=== PATIENT | male | born 1980 | race Caucasian/White ===

== ENCOUNTER 2017-08-27 11:30 | Emergency (ER) | payer OTHER ==
[~2017-08-27] VITALS: Ht 182.9 cm; Wt 119.7 kg
[2017-08-27] MEDS ORDERED: ASPIRIN 81 MG CHEW (CHILDREN'S ASA) PO ONE (12:15)
[2017-08-27 12:18] LABS: BASOPHILS # (AUTO) 0.1 10^3/uL (0.0-0.1); BASOPHILS % (AUTO) 1 % (0-10); EOSINOPHILS # (AUTO) 0.3 10^3/uL (0.0-0.3); EOSINOPHILS % (AUTO) 3 % (0-10); HEMATOCRIT 43 % (40-54); LYMPHOCYTES # (AUTO) 2.5 X 10^3 (1.0-4.0); LYMPHOCYTES % (AUTO) 28 % (12-44); MEAN CORPUSCULAR HEMOGLOBIN 30 PG (25-34); MEAN CORPUSCULAR HGB CONC 35 G/DL (32-36); MEAN CORPUSCULAR VOLUME 86 FL (80-99); MEAN PLATELET VOLUME 9.7 FL (7.4-10.4); MONOCYTES # (AUTO) 0.5 X 10^3 (0.0-1.0); MONOCYTES % (AUTO) 6 % (0-12); NEUTROPHILS # (AUTO) 5.5 X 10^3 (1.8-7.8); NEUTROPHILS % (AUTO) 63 % (42-75); PLATELET COUNT 282 10^3/uL (130-400); RED BLOOD COUNT 4.94 10^6/uL (4.35-5.85); RED CELL DISTRIBUTION WIDTH 13.2 % (10.0-14.5); WHITE BLOOD COUNT 8.8 10^3/uL (4.3-11.0)
[2017-08-27 12:24] LABS: PROTHROMBIN TIME PATIENT 13.4 SEC (12.2-14.7)
[2017-08-27 12:30] LABS: ALANINE AMINOTRANSFERASE 75 U/L (0-55); ALBUMIN 4.5 GM/DL (3.2-4.5); ALKALINE PHOSPHATASE 60 U/L (40-136); BILIRUBIN,TOTAL 0.7 MG/DL (0.1-1.0); BUN/CREATININE RATIO 9; CALCIUM 9.3 MG/DL (8.5-10.1); CARBON DIOXIDE 28 MMOL/L (21-32); CHLORIDE 104 MMOL/L (98-107); GFR ESTIMATED > 60; GLUCOSE 115 MG/DL (70-105); MAGNESIUM 2.4 MG/DL (1.8-2.4); SODIUM 139 MMOL/L (135-145); TOTAL PROTEIN 7.1 GM/DL (6.4-8.2)
[2017-08-27 12:37] LABS: MYOGLOBIN SERUM 91.8 NG/ML (10.0-92.0)
--- NOTE | 2017-08-27 12:43 | Diagnostic Imaging Report ---
PATIENT HISTORY: Severe right arm pain. TECHNIQUE: Single frontal view of the chest. COMPARISON: None. FINDINGS: Lung volumes are normal. No focal consolidation is seen. There is no pleural effusion or pneumothorax. There is mild cardiomegaly with central vascular congestion. IMPRESSION: Mild cardiomegaly with central vascular congestion. Dictated by: Dictated on workstation # [id number]
--- NOTE | 2017-08-27 13:04 | ED Upper Extremity ---
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 He advises he felt it was just sorness however the pain has become progressively worse. He advises today pain is throughout his shoulder arm and finger tips. He advises he became diaphoretic and felt as if he was going to pass out secondary to the pain. Nursing Sepsis Screen: No Definite Risk Source: patient Exam Limitations: no limitations History of Present Illness Date Seen by Provider: August 27, 2017 Time Seen by Provider: 12:30 Initial Comments Here with report of right shoulder and to a limited extent right chest pain as well as nausea, sweating and feeling like he was given a pass out. This has been going on intermittently for the last 3 days. Started when he was working with takes to do vaccinations and he was having to hold them. That day he was having bilateral bicep pain. It did go away and he has had some intermittent pain especially on the right including some right anterior chest wall pain since. Today he was carrying some wood and had the right shoulder area pain that radiated down the right arm. This got severe and he became dizzy and weak as well as shaky and felt like he was given a pass out. He started sweating profusely and nearly vomited. He did take 600 mg ibuprofen about 45 minutes prior to arrival and that may be helping currently some. Onset: other Severity: severe Pain/Injury Location: right shoulder Method of Injury: unknown Modifying Factors: Worse With Immobilization; Improves With Movement Allergies and Home Medications Allergies Coded Allergies: No Known Drug Allergies (Unverified , 08/27/17) Patient Home Medication List Home Medication List Reviewed: Yes Constitutional: see HPI, diaphoresis; No fever EENTM: no symptoms reported Respiratory: No cough, No short of breath Cardiovascular: chest pain; No edema; other (near syncope) Gastrointestinal: No abdominal pain; nausea; No vomiting Genitourinary: no symptoms reported Musculoskeletal: see HPI; No back pain; joint pain, muscle pain; No neck pain Skin: no symptoms reported Psychiatric/Neurological: See HPI All Other Systems Reviewed Negative Unless Noted: Yes Past Diheidk-Hnwryd-Qlqwhw Hx Past Med/Social Hx: Reviewed Nursing Past Med/Soc Hx Patient Social History Alcohol Use: Denies Use Recreational Drug Use: No Smoking Status: Never a Smoker Recent Foreign Travel: No Contact w/Someone Who Travel: No Recent Infectious Disease Expo: No Physical Abuse: No Sexual Abuse: No Past Medical History Surgeries: Yes Orthopedic Respiratory: No Cardiac: No Neurological: No Genitourinary: No Gastrointestinal: No Musculoskeletal: No Endocrine: No HEENT: No Cancer: No Did You Recieve Any Treatments: No Psychosocial: No Nursing Suicide Risk Score: 0 Family Medical History Reviewed Nursing Family Hx No Pertinent Family Hx Physical Exam Vital Signs Vital Signs - First Documented 08/27/17 12:10 Temp 97.7 Pulse 54 Resp 14 B/P (MAP) 110/66 (81) Pulse Ox 98 O2 Delivery Room Air Capillary Refill : Less Than 3 Seconds General Appearance: WD/WN, no apparent distress HEENT: PERRL/EOMI, pharynx normal Neck: non-tender, full range of motion, supple, normal inspection Cardiovascular: regular rate, rhythm, no murmur Respiratory: lungs clear, normal breath sounds Gastrointestinal: non tender, soft Back: normal inspection, no CVA tenderness, no vertebral tenderness Shoulder: normal ROM, pain (anterior superior shoulder region with some tenderness to palpation. Retains full range of motion.) Elbow/Forearm: normal inspection, non-tender, no evidence of injury, normal ROM , Right, Left Wrist: Yes normal inspection Hand: normal inspection Neurologic/Tendon: normal sensation, normal motor functions, normal tendon functions Neurologic/Psychiatric: alert, oriented x 3 Skin: normal color, warm/dry Comments Retains bicep movement in the right arm without findings concerning for rupture. Distal pulses intact and equal bilateral upper extremities. Progress/Results/Core Measures Results/Orders Lab Results Laboratory Tests Test 08/27/17 11:50 Range/Units White Blood Count 8.8 4.3-11.0 10^3/uL Red Blood Count 4.94 4.35-5.85 10^6/uL Hemoglobin 15.0 13.3-17.7 G/DL Hematocrit 43 40-54 % Mean Corpuscular Volume 86 80-99 FL Mean Corpuscular Hemoglobin 30 25-34 PG Mean Corpuscular Hemoglobin Concent 35 32-36 G/DL Red Cell Distribution Width 13.2 10.0-14.5 % Platelet Count 282 130-400 10^3/uL Mean Platelet Volume 9.7 7.4-10.4 FL Neutrophils (%) (Auto) 63 42-75 % Lymphocytes (%) (Auto) 28 12-44 % Monocytes (%) (Auto) 6 0-12 % Eosinophils (%) (Auto) 3 0-10 % Basophils (%) (Auto) 1 0-10 % Neutrophils # (Auto) 5.5 1.8-7.8 X 10^3 Lymphocytes # (Auto) 2.5 1.0-4.0 X 10^3 Monocytes # (Auto) 0.5 0.0-1.0 X 10^3 Eosinophils # (Auto) 0.3 0.0-0.3 10^3/uL Basophils # (Auto) 0.1 0.0-0.1 10^3/uL Prothrombin Time 13.4 12.2-14.7 SEC INR Comment 1.0 0.8-1.4 Activated Partial Thromboplast Time 27 24-35 SEC D-Dimer < 0.27 0.00-0.49 UG/ML Sodium Level 139 135-145 MMOL/L Potassium Level 4.0 3.6-5.0 MMOL/L Chloride Level 104 98-107 MMOL/L Carbon Dioxide Level 28 21-32 MMOL/L Anion Gap 7 5-14 MMOL/L Blood Urea Nitrogen 12 7-18 MG/DL Creatinine 1.30 0.60-1.30 MG/DL Estimat Glomerular Filtration Rate > 60 BUN/Creatinine Ratio 9 Glucose Level 115 H 70-105 MG/DL Calcium Level 9.3 8.5-10.1 MG/DL Magnesium Level 2.4 1.8-2.4 MG/DL Total Bilirubin 0.7 0.1-1.0 MG/DL Aspartate Amino Transf (AST/SGOT) 41 H 5-34 U/L Alanine Aminotransferase (ALT/SGPT) 75 H 0-55 U/L Alkaline Phosphatase 60 40-136 U/L Myoglobin 91.8 10.0-92.0 NG/ML Troponin I < 0.30 <0.30 NG/ML Total Protein 7.1 6.4-8.2 GM/DL Albumin 4.5 3.2-4.5 GM/DL My Orders Orders - RAFAT BOOTH MD Cbc With Automated Diff (08/27/17 12:12) Magnesium (08/27/17 12:12) Chest 1 View, Ap/Pa Only (08/27/17 12:12) Ekg Tracing (08/27/17 12:12) Cardiac Profile 1 (08/27/17 12:12) Comprehensive Metabolic Panel (08/27/17 12:12) Myoglobin Serum (08/27/17 12:12) Protime With Inr (08/27/17 12:12) Partial Thromboplastin Time (08/27/17 12:12) Monitor-Rhythm Ecg Trace Only (08/27/17 12:12) Lipid Panel (08/28/17 06:00) Aspirin Chewable Tablet (Baby Aspirin Ch (08/27/17 12:15) Saline Lock/Iv-Start (08/27/17 12:12) Fibrin Degradation Products (08/27/17 12:12) Medications Given in ED Current Medications Medications Dose Ordered Sig/Jenise Route Start Time Stop Time Status Last Admin Dose Admin Aspirin 324 mg ONCE ONCE PO 08/27/17 12:15 08/27/17 12:16 DC 08/27/17 12:28 324 MG Vital Signs/I&O 08/27/17 08/27/17 12:10 12:28 Temp 97.7 97.7 Pulse 54 Resp 14 B/P (MAP) 110/66 (81) Pulse Ox 98 O2 Delivery Room Air Blood Pressure Mean: 81 Progress Progress Note : Progress Note Seen and evaluated. Challenging history given the history of chest pain with this as well as diaphoresis and near syncope. We will evaluate for cardiac cause the EKG and labs as well as chest x-ray. If this rules out, consideration for musculoskeletal injury of the shoulder or biceps. Aspirin 324 mg by mouth given. Monitor patient. 1330: I did talk with the patient more at length regarding his findings on EKG and chest x-ray including LVH and mild cardiomegaly. Patient is normotensive here and equal bilateral arms. He states that he normally has normal blood pressure. On further conversation, patient does admit to drinking monster caffeinated drinks frequently and previously has used workout supplements while working out which may be the cause of her cardiomegaly and LVH. We did discuss stopping those and also my concerns related to very early cardiac changes noted. He reports that he will stop those. He does not have a current physician and have asked about Dr. Mazin Ratliff. I will send information to him and they will call him for follow-up. Also given name of cardiology for follow-up this may be done through primary care office as well. Initial ECG Impression Date: August 27, 2017 Initial ECG Impression Time: 11:39 Initial ECG Rate: 58 Initial ECG Rhythm: Normal Sinus Initial ECG Comparisson: No Previous ECG Available Comment Sinus rhythm with findings of left ventricular hypertrophy. No evidence of ST elevation LA. No previous available for comparison. Interpreted by me. Diagnostic Imaging Diagonstic Imaging: Xray Plain Films/CT/US/NM/MRI: chest Comments NAME: BRENNAN JACKSON [facility] REC#: [id number] PT STATUS: REG ER : 1980 PHYSICIAN: RAFAT BOOTH MD ADMIT DATE: 08/27/17/ER Signed Date of Exam: 08/27/17 CHEST 1 VIEW, AP/PA ONLY PATIENT HISTORY: Severe right arm pain. TECHNIQUE: Single frontal view of the chest. COMPARISON: None. FINDINGS: Lung volumes are normal. No focal consolidation is seen. There is no pleural effusion or pneumothorax. There is mild cardiomegaly with central vascular congestion. IMPRESSION: Mild cardiomegaly with central vascular congestion. Dictated by: Dictated on workstation # [id number] Dict: 08/27/17 1237 Trans: 08/27/17 1243 Interpreted by: LONG TURCIOS MD Electronically signed by: LONG TURCIOS MD 08/27/17 1243 Reviewed: Reviewed by Me Departure Impression Primary Impression: Right shoulder injury Qualified Codes: S49.91XA - Unspecified injury of right shoulder and upper arm , initial encounter Additional Impression: Mild cardiomegaly Disposition: 01 HOME, SELF-CARE Condition: Improved Departure-Patient Inst. Decision time for Depature: 13:36 Referrals: NO,LOCAL PHYSICIAN (PCP) Primary Care Physician MAZIN RATLIFF MD Patient Instructions: Shoulder Bursitis (DC), Shoulder Sprain (DC), Stress- Induced Cardiomyopathy Copy Copies To 1: MAZIN RATLIFF MD, TIMOTHY D MD August 27, 2017 13:04
[2017-08-27 13:48] VITALS: BP 116/76
== END 2017-08-27 13:55 | disposition home or self-care (01) ==
LOC: ER 11:34
DX: S49.91XA Unspecified injury of right shoulder and upper arm, initial encounter (principal); I51.7 Cardiomegaly; Z98.890 Other specified postprocedural states; X58.XXXA Exposure to other specified factors, initial encounter
CPT/HCPCS: 36415; 71045; 80053; 83735; 83874; 84484; 85025; 85379; 85610; 85730; 93005; 93041